=== PATIENT | female | born 1950 | race Caucasian/White ===

== ENCOUNTER 2019-11-22 15:17 | Outpatient (CLI) | payer MEDICARE, MEDICAID ==
[~2019-11-22 15:17] MED LIST: ALLO300T8 PO; AMIT100T7 PO; ASPI-955 PO; BENZ-49 PO; BUDE10.2 INH; FERR325T28 PO; FURO40TA4 PO; GLYB2.5T4 PO; GUAI600T45 PO; HYDR-3972 PO; IPRA3AMP31 IH; IPRA4AER IH; LISI-604 PO; METO25TA6 PO; POTA8TAB8 PO; PRAV40TA3 PO; WOOL454C TP
[2019-11-22 16:09] LABS: ALANINE AMINOTRANSFERASE 20 U/L (12-78); ALBUMIN 3.5 G/DL (3.4-5.0); ALBUMIN/GLOBULIN RATIO 0.9 (1.1-1.5); ALKALINE PHOSPHATASE 117 IU/L (46-116); ANION GAP 8 (8-16); ASPARTATE AMINO TRANSFERASE 20 U/L (10-37); BILIRUBIN,TOTAL 0.6 MG/DL (0.1-1.0); BLOOD UREA NITROGEN 31 MG/DL (7-18); BUN/CREATININE RATIO 15.4 (6.6-38.0); CALCIUM 9.1 MG/DL (8.5-10.1); CHLORIDE 101 MMOL/L (99-107); CREATININE 2.01 MG/DL (0.40-0.90); GLUCOSE 183 MG/DL (70-104); POTASSIUM 4.6 MMOL/L (3.5-5.1); SODIUM 145 MMOL/L (135-145); TOTAL CARBON DIOXIDE 36.3 MMOL/L (24-32); TOTAL PROTEIN 7.4 G/DL (6.4-8.2); eGFR 24 ML/MIN
[2019-11-22 16:14] LABS: BASOPHILS # (AUTO) 0.1 X10'3 (0-0.2); BASOPHILS % (AUTO) 0.5 % (0-1); EOSINOPHILS # (AUTO) 0.5 X10'3 (0-0.9); HEMATOCRIT 33.8 % (35.0-45.0); HEMOGLOBIN 10.6 g/dl (12.0-16.0); LYMPHOCYTES # (AUTO) 1.4 X10'3 (1.1-4.8); LYMPHOCYTES % (AUTO) 11.5 % (21-51); MEAN CORPUSCULAR HEMOGLOBIN 30.8 PG (27.0-31.0); MEAN CORPUSCULAR HGB CONC 31.2 g/dL (33.0-36.5); MEAN CORPUSCULAR VOLUME 98.8 FL (78-98); MEAN PLATELET VOLUME 8.4 FL (7.4-10.4); MONOCYTES % (AUTO) 8.2 % (2-12); NEUTROPHILS # (AUTO) 9.3 X10'3 (1.8-7.7); NEUTROPHILS % (AUTO) 75.8 % (42-75); PLATELET COUNT 241 X10'3 (140-440); RED BLOOD COUNT 3.42 X10'6 (4.20-5.60); WHITE BLOOD COUNT 12.2 X10'3 (4.5-11.0)
[2019-11-22 17:08] LABS: ANISOCYTOSIS 1+; PLATELET ESTIMATE NORMAL
== END 2019-11-22 23:59 | disposition home or self-care (01) ==
LOC: LAB SPEC 15:17
PROVIDERS: ATTEND Family Medicine
DX: D64.9 Anemia, unspecified (principal); I10 Essential (primary) hypertension; J44.9 Chronic obstructive pulmonary disease, unspecified; E11.9 Type 2 diabetes mellitus without complications; Z88.5 Allergy status to narcotic agent; Z91.040 Latex allergy status; Z88.8 Allergy status to other drugs, medicaments and biological substances
CPT/HCPCS: 36415; 80053; 85025